=== PATIENT | female | born 1955 | race Caucasian/White ===

== ENCOUNTER → 2016-06-23 | Outpatient (CLI) | payer BC | LOC: ECHO 06-22 11:30 → CT 10:30 → ECHO 11:38 | DX: R07.89 Other chest pain (principal); R06.02 Shortness of breath; R05 Cough; N63 Unspecified lump in breast; R60.9 Edema, unspecified; R91.8 Other nonspecific abnormal finding of lung field | CPT/HCPCS: ECHO; 71250; 74150; 93306 ==

== ENCOUNTER → 2016-06-30 | Outpatient (CLI) | payer BC | LOC: MAMO 13:51 | DX: N63 Unspecified lump in breast (principal) ==

== ENCOUNTER → 2016-07-01 | Outpatient (CLI) | payer BC | LOC: HEART 5 09:10 | DX: R06.02 Shortness of breath (principal); R05 Cough | CPT/HCPCS: 94010 ==

== ENCOUNTER → 2021-03-11 | Outpatient (CLI) | payer BC | LOC: HEART 5 08:52 | DX: R94.31 Abnormal electrocardiogram [ECG] [EKG] (principal); I11.0 Hypertensive heart disease with heart failure; I50.30 Unspecified diastolic (congestive) heart failure | CPT/HCPCS: 93306 ==

== ENCOUNTER 2021-03-17 17:11 | Emergency (ER) | payer BC ==
[~2021-03-17] VITALS: Ht 167.6 cm; Wt 97.5 kg
== END 2021-03-17 21:05 | disposition home or self-care (01) ==
LOC: ER1 17:11
DX: U07.1 COVID-19 (principal); J40 Bronchitis, not specified as acute or chronic; Z23 Encounter for immunization; I11.0 Hypertensive heart disease with heart failure; I50.9 Heart failure, unspecified; I25.10 Atherosclerotic heart disease of native coronary artery without angina pectoris
CPT/HCPCS: 71045; 99283; M0245

== ENCOUNTER → 2021-10-05 | Outpatient (CLI) | payer OTHER | LOC: EXRD 08:52 | DX: R79.89 Other specified abnormal findings of blood chemistry (principal) | CPT/HCPCS: 76700 ==